=== PATIENT | female | born 1965 | race Caucasian/White ===

== ENCOUNTER 2019-03-23 06:28 | Day surgery (SDC) | payer BC ==
[~2019-03-23 06:28] MED LIST: Midazolam 1 MG/ML 2 ML SDV ONE; fentaNYL 100 MCG/2 ML SDV ONE
[2019-03-23] MEDS ORDERED: Midazolam 1 MG/ML 2 ML SDV IV ONE (06:29)
[2019-03-23] MEDS ORDERED: fentaNYL 100 MCG/2 ML SDV IV ONE (06:29)
[2019-03-23] MEDS: Dextrose 5%-0.45% NaCl 1,000 ML IV SCH (06:48)
[2019-03-23] MEDS: fentaNYL 100 MCG/2 ML SDV IV ONE ×4 (07:35→07:45)
[2019-03-23] MEDS: Midazolam 1 MG/ML 2 ML SDV IV ONE ×6 (07:36→07:42)
[2019-03-23 10:12] VITALS: BP 94/62
--- NOTE | 2019-03-23 13:21 | OR ---
DATE: 03/23/2019 PROCEDURE: Total colonoscopy and cold snare polypectomy. INSTRUMENT USED: PCF-H190DL Olympus video colonoscope. PREMEDICATIONS: Fentanyl 200 mcg intravenous, Versed 4 mg intravenous. The procedure was done under pulse oximetry, BP recording, and public policy mediator. INDICATION: The patient with recent alteration in bowel habits, unexplained and not responsive to medical measures. Also has persistent abdominal pain. Colonoscopic examination is done for detection of any polypoid lesions and removal, endoscopic hemostasis therapy if needed. DESCRIPTION OF PROCEDURE: Initial rectal exam was unremarkable. Rigid anoscopy showed small internal hemorrhoids without bleeding from them. The colonoscope was passed with ease up to the ileocecal area. Photographs were taken of the cecum showing diminutive benign-appearing polyp, cold snare polypectomy was done, the tissue was retrieved and sent for histopathology. No bleeding was noted from any of the visualized areas at the commencement of the examination. The bowel preparation was thought to be adequate, [place] scale 2 in all the regions. No stricture. No vascular ectasia. No large isolated ulcerations seen. No evidence of diffuse inflammatory bowel disease in the form of friability, contact bleeding, or ulcerations. Probing the proximal sides of folds and flexures using adequate distention and clearing up the stool material, withdrawal of the scope was made, cecum to rectum time over 6 minutes. No bleeding was noted from any of the visualized areas at the completion of examination. IMPRESSION: 1. Internal hemorrhoids. 2. Diminutive cecal polyp. The patient tolerated the procedure well. [facility] /[id number]
--- NOTE | 2019-03-24 09:50 | LETTER ---
03/23/2019 Mei Obrien MD [address] [address] RE: AIYANA CHRIS : [address] Obrien: Ms. Aiyana Pelayo Nadir had colonoscopic examination done this morning and she tolerated the procedure well. I herewith send a copy of the endoscopy note and photographs for your review. Thank you. Sincerely, [facility] /[id number]
== END 2019-03-23 10:00 | disposition home or self-care (01) ==
LOC: DL.ENDO 06:28
PROVIDERS: ATTEND Internal Medicine Gastroenterology
DX: R19.4 Change in bowel habit (principal); D12.0 Benign neoplasm of cecum; K64.8 Other hemorrhoids; F41.1 Generalized anxiety disorder; K21.9 Gastro-esophageal reflux disease without esophagitis; M54.5 Low back pain; E66.09 Other obesity due to excess calories; Z68.35 Body mass index [BMI] 35.0-35.9, adult; Z88.5 Allergy status to narcotic agent; Z88.6 Allergy status to analgesic agent; Z88.8 Allergy status to other drugs, medicaments and biological substances; Z88.1 Allergy status to other antibiotic agents
CPT/HCPCS: 45385; J2250; J3010; J7042